=== PATIENT | female | born 1960 | race Caucasian/White ===

== ENCOUNTER → 2021-09-20 | Outpatient (CLI) | payer OTHER ==
[~2021-09-20] MED LIST: ASCO500 PO; Calcium 600-D1 EACH; Daily Multiple1 EACH PO; FISH OIL 1,2001 EACH PO; SLOW RELEASE I168 MG; TRIPLE FLEX CA1 EACH PO; VITAMIN D32000 UNIT PO
== END | disposition home or self-care (01) ==
LOC: LAB SHORT 15:43 → LAB 15:43
PROVIDERS: Family Medicine
DX: Z12.4 Encounter for screening for malignant neoplasm of cervix (principal)
CPT/HCPCS: 87070; 87147; 87205

== ENCOUNTER 2023-12-10 08:26 | Emergency (ER) | payer OTHER ==
[~2023-12-10] VITALS: Ht 160 cm; Wt 86.2 kg
[2023-12-10 08:31] VITALS: BP 165/95
[2023-12-10] MEDS ORDERED: VITAMIN B12500 MCG (08:36)
[2023-12-10] MEDS ORDERED: CEPHALEXIN500 M2 PO (08:36)
[2023-12-10] MEDS ORDERED: CEPH500 PO (09:03)
[2023-12-10] MEDS ORDERED: Bactrim Ds Tab1 EACH PO (09:03)
[2023-12-10] MEDS ORDERED: TRIDERM28.4 GM TOP (09:03)
== END 2023-12-10 09:17 | disposition home or self-care (01) ==
LOC: ER 08:26
DX: L03.116 Cellulitis of left lower limb (principal); Z79.899 Other long term (current) drug therapy
CPT/HCPCS: 99283

== ENCOUNTER 2025-02-16 11:08 | Day surgery (SDC) | payer OTHER ==
[~2025-02-16] VITALS: Ht 160 cm; Wt 83.9 kg
[~2025-02-16 11:08] MED LIST changes: +Bactrim Ds Tab1 EACH PO; +CEPH500 PO; +CEPHALEXIN500 M2 PO; +TRIDERM28.4 GM TOP; +VITAMIN B12500 MCG
[2025-02-16 12:54] VITALS: BP 131/90
== END 2025-02-16 13:02 | disposition home or self-care (01) ==
LOC: ORSCSDS 11:08
PROVIDERS: Internal Medicine Gastroenterology
PROC: 0DBH8ZX Excision of Cecum, Via Natural or Artificial Opening Endoscopic, Diagnostic (ICD-10-PCS; principal; 2025-02-16 12:45)
DX: Z09 Encounter for follow-up examination after completed treatment for conditions other than malignant neoplasm (principal); D12.0 Benign neoplasm of cecum; Z86.0101 Personal history of adenomatous and serrated colon polyps
CPT/HCPCS: 88305; J2704; J7120